=== PATIENT | male | born 1945 | race Caucasian/White ===

== ENCOUNTER 2023-09-27 08:45 | Outpatient (CLI) | payer MEDICARE, SELFPAY | END 2023-09-27 08:46 | disposition home or self-care (01) | PROVIDERS: PCP Nurse Practitioner Family; Visit Provider Nurse Practitioner Family | DX: I10 Essential (primary) hypertension (principal); E78.2 Mixed hyperlipidemia; Z12.5 Encounter for screening for malignant neoplasm of prostate | CPT/HCPCS: 80053; 80061; 85025; G0103 ==

== ENCOUNTER 2023-10-29 09:29 | Outpatient (CLI) | payer MEDICARE, SELFPAY ==
--- NOTE | 2023-10-29 10:50 | W.ANESCHARGE ---
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
--- NOTE | 2023-10-29 11:05 | W.ANESCHARGE ---
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
== END 2023-10-29 09:30 | disposition home or self-care (01) ==
LOC: OP CLINIC 09:29
PROVIDERS: PCP Nurse Practitioner Family; Visit Provider Internal Medicine
DX: Z12.11 Encounter for screening for malignant neoplasm of colon (principal); K64.8 Other hemorrhoids
CPT/HCPCS: 00811; 00812; 45378; 99100; J2704

== ENCOUNTER 2024-10-03 10:17 | Outpatient (CLI) | payer MEDICARE, SELFPAY | END 2024-10-03 10:18 | disposition home or self-care (01) | PROVIDERS: PCP Nurse Practitioner Family; Visit Provider Nurse Practitioner Family | DX: E78.5 Hyperlipidemia, unspecified (principal); I10 Essential (primary) hypertension; E04.1 Nontoxic single thyroid nodule; R73.9 Hyperglycemia, unspecified; Z12.5 Encounter for screening for malignant neoplasm of prostate; Z13.0 Encounter for screening for diseases of the blood and blood-forming organs and certain disorders involving the immune mechanism | CPT/HCPCS: 80053; 80061; 85025; G0103 ==

== ENCOUNTER 2024-10-20 08:40 | Outpatient (CLI) | payer MEDICARE, SELFPAY | END 2024-10-20 08:41 | disposition home or self-care (01) | LOC: RAD 08:42 | PROVIDERS: PCP Nurse Practitioner Family; Visit Provider Nurse Practitioner Family | DX: I51.7 Cardiomegaly (principal); I35.1 Nonrheumatic aortic (valve) insufficiency; I34.0 Nonrheumatic mitral (valve) insufficiency; I07.1 Rheumatic tricuspid insufficiency | CPT/HCPCS: 93306 ==

== ENCOUNTER 2025-02-07 12:30 | Outpatient (RCR) | payer MEDICARE, SELFPAY ==
--- NOTE | 2024-12-27 14:41 | PT.OPEX ---
PT [place] [facility] Out[facility] Eval Start: 12/27/24 09:28 Freq: Status: Active Protocol: Document 12/27/24 09:28 CRP (Rec: 12/27/24 14:30 CRP [id number]) E-signed By Travis Farfan PT Physical Therapy Outpatient Evaluation Insurance Information Recert Due Date 03/27/25 Insurance Name Medicare B,are Medical Diagnosis Chronic low back pain Referring MD Dr White Subjective Subjective Pt co low back pain at the middle of his low back. Pt reports that his pain has been worsening. Pt reports that he used to walk five miles per day but recently he has not because of pain. Also had an issue of increased LBP when riding a stationary bike. Pt did not having any specific injury. Pain has become an issue over the last 6 months or so. Does have some intermittent crepitus and pain at L knee but otherwise no LE pain. Can have some short lived tingling into his feet after sitting in recliner. This calms pretty quickly. Pain is most aggravated with walking. Bending can also increase his pain. May have had back surgery years ago but not sure what the did during the surger. Pain Comments 11/25 Current Work Status Retired Objective Other/Pertinent Posture: L lateral lean. Flattened lumbar spine. Objective Trunk ROM: FLex min dec, Ext charla dec with LBP, R SB mod dec with pain, L SB min/mod dec, R rot painful. L rot WNL Hip ROM: LBP with flex bilat, LBP with ER bilat, IR mod restriction bilat. Knee ROM ext limited on R by 10 degrees. SLR + on the R MMT: myotomes WNL. Pain noted into low back with R hip flex testing Functional Test Tinetti: Performed & Score Assessment Assessment/ Pt presents to the clinic with long standing issues of Impression LBP, general weakness and balance difficulties. Pts signs and sxs are consistent with lumbar spine DDD and comorbidities including bilateral hip mobility dysfunction, bilat LE weakness, R sided adverse neurodynamics and balance deficits. Skilled PT is necessary to incorporate ther ex, nm loulou, manual therapy and pt education to decrease pain and improve functional mobility. 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 Pt will be independent with HEP in 8 weeks. Goals 2. Pt will complete 45 minutes of referral nurse with 75% decrease in pain in 10 weeks. 3. Pt will walk 20 minutes for exercise with 75% decrease in pain in 12 weeks. Coordination/ Referral Source Communication With Treatment Plan/ Gait Training,Joint Mobilization,Manual Therapy, Direct Interventions Neuromuscular Re-ed,Self-Care/Home Management, Therapeutic Activities,Therapeutic Exercises Frequency/Duration 1-2x/wk for 12 weeks Patient Will Be Completion of LTG(s),Skills Plateau,Independent w/HEP, Discharged From Independently Progressing Therapy Evaluation Billing Untimed Code 40 Treatment Minutes Complexity Moderate Certification Information Initial 12/27/24 Certification Date Ending Certification 03/27/25 Date Provider Signature Yes Required Provider Signature POC & Medical Necessity Shows Agreement With Physician NPI Number Write NPI# Here Physician Comment/ : Change Physician Signature Please Sign/Date Here & Date Requested
== END 2025-06-06 14:26 | disposition home or self-care (01) ==
PROVIDERS: PCP Nurse Practitioner Family; Visit Provider Family Medicine
DX: M54.50 Low back pain, unspecified (principal); G89.29 Other chronic pain; Z51.89 Encounter for other specified aftercare
CPT/HCPCS: 97110; 97112; 97140; 97162